=== PATIENT | male | born 2005 | race Two or more races ===

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

== ENCOUNTER 2025-02-05 15:27 | Emergency (ER) | payer BC, MEDICAID ==
[~2025-02-05] VITALS: Ht 185.4 cm; Wt 109.6 kg
--- NOTE | 2025-02-05 16:30 | ED.PDOC ---
HPI Comments This is a 19 year old male presenting to the ED with chief complaint of laceration. Patient reports that he was moving a chandelier an hour ago when all of a sudden it broke and glass shattered, cutting his left forearm. Patient relays that he has since controlled the bleeding. Patient denies any further injury at this time. Vital signs were stable at arrival. Chief Complaint: Laceration Time Seen by MD: 16:27 Primary Care Provider: jerrell herrera Reviewed Notes: Nurses Notes, Medications, Allergies Allergies: Coded Allergies: NO KNOWN ALLERGIES (Unverified , 04/15/14) Information Source: Patient Mode of Arrival: Ambulatory Severity: Mild Severity of Laceration: Controlled Bleeding Complexity: Simple Timing: Hours Prehospital treatment: None Laceration Location: Arm Mechanism: Glass Laceration Length (cm): 4 Skin Type: Linear Depth of Injury: Skin, Mucosa, SQ Capillary Refill: < 3 seconds Tender: Mild Discharge: Serosanguinous Erythema: Localized to Wound Edges Past Medical History PAST MEDICAL HISTORY: Denies Surgical History: Denies all surgeries Family History Family History: Reviewed,noncontributory to illness Social History Smoker: Non-Smoker Alcohol: Denies ETOH Use Drugs: Denies Drug Use Lives In: Home Constitutional: denies: chills, diaphoresis, fatigue, fever, malaise, sweats, weakness, others EENTM: denies: blurred vision, double vision, ear bleeding, ear discharge, ear drainage, ear pain, ear ringing, eye pain, eye redness, hearing loss, mouth pain, mouth swelling, nasal discharge, nose bleeding, nose congestion, nose pain, photophobia, tearing, throat pain, throat swelling, voice changes, others Respiratory: denies: cough, hemoptysis, orthopnea, SOB at rest, shortness of breath, SOB with excertion, stridor, wheezing, others Cardiovascular: denies: chest pain, dizzy spells, diaphoresis, Dyspnea on exertion, edema, irregular heart beat, left arm pain, lightheadedness, palpitations, PND, syncope, others Gastrointestinal: denies: abdomen distended, abdominal pain, blood streaked bowels, constipated, diarrhea, dysphagia, difficulty swallowing, hematemesis, melena, nausea, poor appetite, poor fluid intake, rectal bleeding, rectal pain, vomiting, others Genitourinary: denies: burning, dysuria, flank pain, frequency, hematuria, incontinence, penile discharge, penile sore, pain, testicle pain, testicle swelling, urgency, others Neurological: denies: dizziness, fainting, headache, left sided numbness, left sided weakness, numbness, paresthesia, pre-existing deficit, right sided numbness, right sided weakness, seizure, speech problems, tingling, tremors, wea kness, others Musculoskeletal: denies: back pain, gout, joint pain, joint swelling, muscle pain, muscle stiffness, neck pain, others Integumetry: reports: laceration (Left forearm); denies: bruises, change in color, change in hair/nails, dryness, lesions, lumps, rash, wounds, others Allergic/Immunocompromised: denies: Difficulty Healing, Frequent Infections, Hives, Itching, others Hematologic/Lymphatic: denies: anemia, blood clots, easy bleeding, easy bruising, swollen glands, others Endocrine: denies: excessive hunger, excessive sweating, excessive thirst, excessive urination, flushing, intolerance to cold, intolerance to heat, unexplained weight gain, unexplained weight loss, others Psychiatric: denies: anxiety, bipolar disorder, depression, hopeless, panic disorder, schizophrenia, sleepless, suicidal, others All Other Systems: Reviewed and Negative Physical Exam General Appearance: Mild Distress (Moderate distress due to anxiety related to his left forearm laceration.), Normal HEENT: Normal ENT Inspection, Pharynx Normal, TMs Normal Neck: Full Range of Motion, Non-Tender, Normal, Normal Inspection Respiratory: Chest Non-Tender, Lungs Clear, No Accessory Muscle Use, No Respiratory Distress, Normal Breath Sounds Cardiovascular: No Edema, No JVD, No Murmur, No Gallop, Normal Peripheral Pulses, Regular Rate/Rhythm Breast Exam: Deferred Gastrointestinal: No Organomegaly, Non Tender, No Pulsatile Mass, Normal Bowel Sounds, Soft Genitalia: Deferred Pelvic: Deferred Rectal: Deferred Extremities: No calf tenderness, Normal capillary refill, Normal inspection, Normal range of motion, Non-tender, No pedal edema Musculoskeletal : Apperance: Normal Neurologic: Alert, No Motor Deficits, Normal Affect, Normal Mood, No Sensory Deficits Cerebellar Function: Normal Reflexes: Normal Skin: Dry, Lacerations (4cm laceration to anterior aspect of left forearm. Bleeding is controlled. No tendon or muscle involvement.), Normal Color, Warm Lymphatic: No Adenopathy Was a procedure done? Was a procedure done?: Yes Sedation Sedation?: No Laceration Repair : Location Left anterior forearm Length 4cm Anesthetic: Lidocaine Laceration Repair Prep: Saline, by Irrigation, Manual Scrub Laceration Repair Wound Comple: subcut tissue repair Laceration Repair: Number of sutures (Seven 4-0 ethilon sutures), SQ Informed consent obtained: Yes Risks, benefits, and alternati: Yes Notes 5 cc of 1% lidocaine was utilized for local anesthesia. Sterile field was placed. Copious irrigation performed. Seven 4-0 Ethilon sutures were placed in a simple interrupted fashion to close the wound of the left forearm. Minimal blood loss. Patient tolerated procedure well. Clean dressing applied. Differential diagnosis Generic Laceration: Laceration X-Ray, Labs, Meds, VS Vital Signs Date Time Temp Pulse Resp B/P (MAP) Pulse Ox O2 Delivery O2 Flow Rate FiO2 02/05/25 15:40 99.4 96 20 143/76 (98) 96 99.4 X-Ray, Labs, Meds, VS Comment Patient tolerated procedure well. Advised patient to utilize oral antibiotics for the next few days and pain medication as needed. Patient should keep the wound covered. Patient should return to ED or primary care provider in 10 days for re-evaluation and probable suture removal. Time of 1ST Reevaluation: 17:44 Reevaluation 1ST: Improved Consultation: PCP Patient Education/Counseling: Diagnosis, Treatment Family Education/Counseling: Diagnosis, Treatment, No Family Present Departure 1 Departure Time of Disposition: 17:45 Impression: Primary Impression: Laceration of forearm Disposition: HOME / SELF CARE / HOMELESS Condition: Stable Additional Instructions: Advised patient utilize antibiotics as directed until completion as well as pain medication as needed. Patient should return to ED or primary care provider in 10 days for re-evaluation and probable suture removal. e-Prescriptions Ibuprofen Micronized (Ibuprofen) 800 Mg Tab 800 MG PO Q8HP PRN, #20 TAB Prov: KASI SIMENTAL PAC 02/05/25 Cephalexin (KEFLEX CAPSULE) 250 Mg Cp 1 CAP PO QID for 7 Days, #28 CAP Prov: KASI SIMENTAL PAC 02/05/25 Discharged With: Self, Friend Critical Care Note Critical Care Time?: No Stability Stability form required: No Heart Score Heart Score: Heart Score Response (Comments) Value History N/A 0 EKG N/A 0 Age N/A 0 Risk Factors N/A 0 Troponin N/A 0 Total 0 I personally scribed for KASI SIMENTAL PAC ([place] Mad[place]) on 02/05/25 at 16:30. Electronically submitted by Vicente Verdin ([email or web address]). I personally scribed for KASI SIMENTAL PAC ([email or web address]) on 02/05/25 at 16:38. Electronically submitted by Vicente Verdin ([email or web address]). KASI SIMENTAL PAC Feb 05, 2025 16:30
[2025-02-05] MEDS ORDERED: IBUP-1455 PO (17:46)
[2025-02-05] MEDS ORDERED: CEPH250C PO (17:46)
[2025-02-05 20:57] VITALS: RESP 18
[2025-02-05 21:00] VITALS: BP 153/87; PULSE 63; RESP 18; TEMP 98.4; O2SAT 98
== END 2025-02-05 21:04 | disposition home or self-care (01) ==
LOC: ER 15:27
DX: S51.812A Laceration without foreign body of left forearm, initial encounter (principal); W25.XXXA Contact with sharp glass, initial encounter; Y93.89 Activity, other specified; Y92.89 Other specified places as the place of occurrence of the external cause; Y99.8 Other external cause status
CPT/HCPCS: 12002; 99283; J2003